=== PATIENT | male | born 2000 | race Caucasian/White ===

== ENCOUNTER 2020-05-11 11:26 | Emergency (ER) | payer SELFPAY ==
[~2020-05-11 11:26] MED LIST: BACTROBAN OINT22 GM EXT; BENTYL 10MG CAP10 MG PO; IBUPROFEN600 MG PO; ZOFRAN ODT4 MG PO
[2020-05-11] MEDS ORDERED: CYCLOBENZAPRINE10 MG PO (15:51)
[2020-05-11] MEDS ORDERED: IBUPROFEN800 MG PO (15:51)
== END 2020-05-11 15:53 | disposition home or self-care (01) ==
LOC: ER1 11:26
DX: S16.1XXA Strain of muscle, fascia and tendon at neck level, initial encounter (principal); R51.9 Headache, unspecified; F17.200 Nicotine dependence, unspecified, uncomplicated; V48.6XXA Car passenger injured in noncollision transport accident in traffic accident, initial encounter; Y92.410 Unspecified street and highway as the place of occurrence of the external cause
CPT/HCPCS: 70450; 71045; 72125; 72128; 72131; 99284

== ENCOUNTER 2021-03-08 15:59 | Emergency (ER) | payer OTHER ==
[~2021-03-08 15:59] MED LIST changes: +CYCLOBENZAPRINE10 MG PO; +IBUPROFEN800 MG PO
[2021-03-08] MEDS ORDERED: IBUPROFEN400 MG PO (17:46)
== END 2021-03-08 17:57 | disposition home or self-care (01) ==
LOC: ER1 15:59
DX: M72.2 Plantar fascial fibromatosis (principal); M21.42 Flat foot [pes planus] (acquired), left foot; M21.41 Flat foot [pes planus] (acquired), right foot; F17.200 Nicotine dependence, unspecified, uncomplicated
CPT/HCPCS: 73630; 99283

== ENCOUNTER 2021-05-12 14:06 | Emergency (ER) | payer OTHER ==
[~2021-05-12 14:06] MED LIST changes: +IBUPROFEN400 MG PO
[2021-05-12 16:41] LABS: HEMOGLOBIN 16.6 gm/dl (14.0-17.5); RED BLOOD COUNT 5.12 M/UL (4.20-5.50); WHITE BLOOD COUNT 10.1 K/UL (4.5-11.0)
[2021-05-12 16:55] LABS: BUN/CREATININE RATIO 18 (0-10)
[2021-05-12] MEDS ORDERED: BENTYL 20MG TAB20 MG PO (20:22)
[2021-05-12] MEDS ORDERED: IBUPROFEN600 MG PO (20:22)
[2021-05-12] MEDS ORDERED: ZOFRAN4 MG PO (20:22)
== END 2021-05-12 20:38 | disposition home or self-care (01) ==
LOC: ER1 14:06
PROVIDERS: Physician Assistant Medical
DX: R10.9 Unspecified abdominal pain (principal); Z20.822 Contact with and (suspected) exposure to COVID-19
CPT/HCPCS: 80053; 81001; 85025; 87081; 87086; 87880; 99284; U0002

== ENCOUNTER 2021-08-04 16:12 | Emergency (ER) | payer OTHER ==
[~2021-08-04 16:12] MED LIST changes: +BENTYL 20MG TAB20 MG PO; +ZOFRAN4 MG PO
[2021-08-04 16:50] LABS: HEMOGLOBIN 16.1 gm/dl (14.0-17.5); RED BLOOD COUNT 4.99 M/UL (4.20-5.50); WHITE BLOOD COUNT 7.3 K/UL (4.5-11.0)
[2021-08-04 17:12] LABS: BUN/CREATININE RATIO 19 (0-10)
== END 2021-08-04 17:50 | disposition home or self-care (01) ==
LOC: ER1 16:12
PROVIDERS: Emergency Medicine
DX: R23.3 Spontaneous ecchymoses (principal)
CPT/HCPCS: 80053; 85025; 85610; 85730; 99283

== ENCOUNTER 2021-12-02 15:51 | Emergency (ER) | payer SELFPAY ==
[2021-12-02 16:53] LABS: HEMOGLOBIN 16.9 gm/dl (14.0-17.5); RED BLOOD COUNT 5.19 M/UL (4.20-5.50); WHITE BLOOD COUNT 13.1 K/UL (4.5-11.0)
[2021-12-02 17:05] LABS: BUN/CREATININE RATIO 14 (0-10)
== END 2021-12-02 21:40 | disposition home or self-care (01) ==
LOC: ER1 15:51
PROVIDERS: Emergency Medicine
DX: F10.10 Alcohol abuse, uncomplicated (principal); R42 Dizziness and giddiness; R10.9 Unspecified abdominal pain; R53.83 Other fatigue; Z20.822 Contact with and (suspected) exposure to COVID-19; Y90.0 Blood alcohol level of less than 20 mg/100 ml; F15.10 Other stimulant abuse, uncomplicated; F17.290 Nicotine dependence, other tobacco product, uncomplicated
CPT/HCPCS: 70450; 80053; 80307; 81001; 83690; 83735; 84439; 84443; 85025; 96365; 96366; 99284; G0480; J3411; J3475; J7030; U0002

== ENCOUNTER 2021-12-05 12:03 | Emergency (ER) | payer OTHER ==
[2021-12-05 13:15] LABS: HEMOGLOBIN 17.4 gm/dl (14.0-17.5); RED BLOOD COUNT 5.27 M/UL (4.20-5.50)
[2021-12-05 13:20] LABS: WHITE BLOOD COUNT 5.6 K/UL (4.5-11.0)
[2021-12-05 13:38] LABS: BUN/CREATININE RATIO 22 (0-10)
[2021-12-05] MEDS ORDERED: IBUPROFEN600 MG PO (17:58)
== END 2021-12-05 19:27 | disposition home or self-care (01) ==
LOC: ER1 12:03
PROVIDERS: Physician Assistant Medical
DX: R07.89 Other chest pain (principal); R10.9 Unspecified abdominal pain; R51.9 Headache, unspecified; R42 Dizziness and giddiness
CPT/HCPCS: 71045; 80053; 82550; 82553; 84484; 85025; 93005; 99285

== ENCOUNTER 2021-12-13 13:29 | Emergency (ER) | payer OTHER | END 2021-12-13 17:16 | disposition home or self-care (01) | LOC: ER1 13:29 | DX: U07.1 COVID-19 (principal) | CPT/HCPCS: 0240U; 87081; 87880; 99283 ==

== ENCOUNTER 2021-12-29 16:56 | Emergency (ER) | payer OTHER ==
[2021-12-29 17:29] LABS: HEMOGLOBIN 15.1 gm/dl (14.0-17.5); RED BLOOD COUNT 4.77 M/UL (4.20-5.50); WHITE BLOOD COUNT 7.7 K/UL (4.5-11.0)
[2021-12-29 18:09] LABS: BUN/CREATININE RATIO 15 (0-10)
[2021-12-29] MEDS ORDERED: AMOX TR-K CLV1 EAC4 PO (21:42)
== END 2021-12-29 22:16 | disposition home or self-care (01) ==
LOC: ER1 16:56
PROVIDERS: Emergency Medicine
DX: R10.31 Right lower quadrant pain (principal); R10.813 Right lower quadrant abdominal tenderness; K38.1 Appendicular concretions; F17.290 Nicotine dependence, other tobacco product, uncomplicated
CPT/HCPCS: 80053; 81001; 83690; 85025; 96374; 99284; J1885; Q9967